=== PATIENT | female | born 1965 | race American Indian/Alaskan Native ===

== ENCOUNTER 2017-03-01 08:41 | Emergency (ER) | payer BC ==
[2017-03-01 09:08] VITALS: BP 145/97
[2017-03-01 10:20] LABS: Basophils % (Auto) 0.6 % (0.0-1.8); Eosinophils % (Auto) 0.7 % (0.0-4.3); Hematocrit 42.7 % (30.3-42.9); Hemoglobin 13.5 gm/dl (10.1-14.3); Mean Corpuscular HGB Conc 32 % (30-34); Mean Corpuscular Volume 79 fl (79-97); Platelet Count 266 K/mm3 (140-440); Red Blood Count 5.42 M/mm3 (3.65-5.03); Red Cell Distribution Width 14.2 % (13.2-15.2); White Blood Count 17.6 K/mm3 (4.5-11.0)
[2017-03-01 10:28] LABS: Mean Corpuscular Hemoglobin 25 pg (28-32)
[2017-03-01 10:29] LABS: Anion Gap 19 mmol/L; Blood Urea Nitrogen 10 mg/dL (7-17); Calcium 9.1 mg/dL (8.4-10.2); Carbon Dioxide 25 mmol/L (22-30); Chloride 95.7 mmol/L (98-107); Glucose 367 mg/dL (65-100); Potassium 3.9 mmol/L (3.6-5.0); Sodium 136 mmol/L (137-145)
[2017-03-01] MEDS ORDERED: XYLOCAINE 2%/EPI 1:100,000 INFILTRATI ONE (11:32)
[2017-03-01] MEDS ORDERED: NACL 0.9% 1000 ML 1,000 ML IV ONE (11:32)
[2017-03-01] MEDS ORDERED: TYLENOL PO ONE (11:33)
--- NOTE | 2017-03-01 11:52 | Emergency Department Report ---
Kourtney Doc - Documentation Documentation: When I initially entered the examination room and introduced myself to the patient I informed her that I am the physician logistics assistant and that I would be initially assessing her and attempting to help her today with her medical issue. Patient asked me who I was twice to which I responded twice my name / title/role in the ED. patient stated that she specifically wanted a female clinician to see her. I informed the patient that at this time the clinical staff in the main ED and fast track are male clinical staff. Patient was adamant that she only wanted a female provider. I explained to the patient that I am capable of assisting her with her issue and that I can obtain a female neighborhood service center director to assist me and neighborhood service center director me for any physical examination . Patient again stated that she only wanted a female provider that she considered it rude that I did not immediately seek out a female provider for her. I apologized and explained to the patient that it may be an indefinite amount of time before she is seen specifically by a female provider but there are clinical providers who can help her at this time and that I would inform the charge nurse and my supervisor die casting of her request. I informed charge nurse Peyton and Dr. Agee that the patient only wants to be seen by a female clinician.
[2017-03-01] MEDS ORDERED: XYLOCAINE 1% 20 mL INFILTRATI ONE (12:26)
[2017-03-01] MEDS ORDERED: MORPHINE IM ONE ×2 (12:26→13:19)
--- NOTE | 2017-03-01 12:45 | Emergency Department Report ---
- General Chief complaint: Skin/Abscess/Foreign Body Stated complaint: BOIL/HIGH BLOOD PRESSURE/HYPERGLYCEMIA Time Seen by Provider: 03/01/17 11:30 Source: patient Mode of arrival: Ambulatory Limitations: No Limitations - History of Present Illness Initial comments: Patient is boil in left buttock approximately 2 days ago. She's been trying to soak in warm bath to get the site to drain. There is some mild surrounding redness around the site. It is on the left buttock. She has had an abscess in this site in the past. MD complaint: abscess/boil -: Gradual, days(s) (2) Tetanus Up to Date: yes Location: buttocks Severity: moderate Quality: aching Worsens with: none Context: none Associated symptoms: denies other symptoms - Related Data Previous Rx's Medication Instructions Recorded Last Taken Type HYDROcodone/APAP 5-325 [[place] 1 each PO Q6HR PRN #10 tablet 03/01/17 Unknown Rx 5-325 mg TAB] Ibuprofen [Motrin 600 MG tab] 600 mg PO Q8H PRN #30 tablet 03/01/17 Unknown Rx Sulfamethoxazole/Trimethoprim 1 each PO BID #20 tablet 03/01/17 Unknown Rx [Bactrim DS TAB] Allergies Allergy/AdvReac Type Severity Reaction Status Date / Time No Known Allergies Allergy Verified 03/01/17 09:05 Abscess Boil HPI - HPI Chief Complaint: Skin/Abscess/Foreign Body Stated Complaint: BOIL/HIGH BLOOD PRESSURE/HYPERGLYCEMIA Time Seen by Provider: 03/01/17 11:30 Home Medications: Previous Rx's Medication Instructions Recorded Last Taken Type HYDROcodone/APAP 5-325 [[place] 1 each PO Q6HR PRN #10 tablet 03/01/17 Unknown Rx 5-325 mg TAB] Ibuprofen [Motrin 600 MG tab] 600 mg PO Q8H PRN #30 tablet 03/01/17 Unknown Rx Sulfamethoxazole/Trimethoprim 1 each PO BID #20 tablet 03/01/17 Unknown Rx [Bactrim DS TAB] Allergies/Adverse Reactions: Allergies Allergy/AdvReac Type Severity Reaction Status Date / Time No Known Allergies Allergy Verified 03/01/17 09:05 ED Review of Systems ROS: Stated complaint: BOIL/HIGH BLOOD PRESSURE/HYPERGLYCEMIA Other details as noted in HPI Constitutional: no symptoms reported. denies: fever, malaise Cardiovascular: denies: chest pain, palpitations Gastrointestinal: denies: nausea, vomiting Musculoskeletal: denies: back pain, arthralgia ED Past Medical Hx - Past Medical History Previous Medical History?: Yes Hx Hypertension: Yes Hx Diabetes: Yes - Surgical History Past Surgical History?: No - Family History Family history: no significant - Social History Smoking Status: Unknown if ever smoked Substance Use Type: None - Medications Home Medications: Home Medications Medication Instructions Recorded Confirmed Last Taken Type HYDROcodone/APAP 5-325 [[place] 1 each PO Q6HR PRN #10 tablet 03/01/17 Unknown Rx 5-325 mg TAB] Ibuprofen [Motrin 600 MG tab] 600 mg PO Q8H PRN #30 tablet 03/01/17 Unknown Rx Sulfamethoxazole/Trimethoprim 1 each PO BID #20 tablet 03/01/17 Unknown Rx [Bactrim DS TAB] ED Physical Exam - General Limitations: No Limitations General appearance: alert, in no apparent distress - Head Head exam: Present: atraumatic, normocephalic - GI/Abdominal GI/Abdominal exam: Present: soft. Absent: distended, tenderness, guarding - Rectal Rectal exam: Present: other (there is a fluctuant and firm abscess around the patient's left buttock) ED Course Vital Signs 03/01/17 09:05 Temperature 99.1 F Pulse Rate 115 H Respiratory 18 Rate Blood Pressure 145/97 O2 Sat by Pulse 96 Oximetry - I & D Left Buttocks Type of Procedure: Simple Site: left buttock Blade Size: 11 I & D Procedure: betadine prep, sterile drapes applied, gauze wick placed Progress: 1/4 inch iodiform gauze packing placed ED Medical Decision Making - Lab Data Result diagrams: 03/01/17 10:00 03/01/17 10:00 Laboratory Results - last 24 hr 03/01/17 03/01/17 10:00 10:00 WBC 17.6 H RBC 5.42 H Hgb 13.5 Hct 42.7 MCV 79 MCH 25 L MCHC 32 RDW 14.2 Plt Count 266 Lymph % (Auto) 17.6 [place] % (Auto) 6.0 Eos % (Auto) 0.7 Baso % (Auto) 0.6 Lymph # 3.1 [place] # 1.1 H Eos # 0.1 Baso # 0.1 Seg Neutrophils % 75.1 H Seg Neutrophils # 13.2 H Sodium 136 L Potassium 3.9 Chloride 95.7 L Carbon Dioxide 25 Anion Gap 19 BUN 10 Creatinine 0.4 L Estimated GFR > 60 BUN/Creatinine Ratio 25.00 Glucose 367 H Calcium 9.1 - Medical Decision Making 51-year-old female here with buttock abscess. Plan to drain With incision and drainage. We'll likely place the patient on postdrainage antibiotics. Tolerated procedure well. Patient will be discharged to follow-up for repacking within 48-72 hours. Plan to discharge on oral antibiotics. Counseled patient to return for development of fever or worsening pain. She understands and plans to follow-up. I also counseled that she should follow up with primary care doctor. Portions of this chart were dictated with dictation software. There may be dictation errors contained within this note. Critical care attestation.: If time is entered above; I have spent that time in minutes in the direct care of this critically ill patient, excluding procedure time. ED Disposition Clinical Impression: Left buttock abscess Disposition: TO HOME OR SELFCARE Is pt being admited?: No Condition: Stable Instructions: Abscess (ED) Additional Instructions: Please return to the emergency department for wound evaluation in [id number] hours. You may need to have the wound repacked. Prescriptions: HYDROcodone/APAP 5-325 [[place] 5-325 mg TAB] 1 each PO Q6HR PRN #10 tablet PRN Reason: Pain Ibuprofen [Motrin 600 MG tab] 600 mg PO Q8H PRN #30 tablet PRN Reason: Pain Sulfamethoxazole/Trimethoprim [Bactrim DS TAB] 1 each PO BID #20 tablet Referrals: PRIMARY CARE, [Primary Care Provider] - 3-5 Days
[2017-03-01] MEDS ORDERED: BACTRIM DS PO ONE (13:29)
== END 2017-03-01 13:42 | disposition home or self-care (01) ==
LOC: ED 08:41
DX: L02.31 Cutaneous abscess of buttock (principal); I10 Essential (primary) hypertension; E11.9 Type 2 diabetes mellitus without complications
CPT/HCPCS: 10060; 36415; 80048; 85025; 96372; 99283; J2270

== ENCOUNTER 2017-03-03 12:57 | Emergency (ER) | payer BC ==
[2017-03-03 14:06] VITALS: BP 133/88
--- NOTE | 2017-03-03 15:58 | Emergency Department Report ---
Abscess Boil HPI - HPI Chief Complaint: Laceration/Recheck/Suture Stated Complaint: PACKING REMOVAL Time Seen by Provider: 03/03/17 15:42 Duration: 2 Days Location: Other (buttocks) Severity: Moderate History: Yes Pain, No Fever, No Purulent Drainage, No Numbness, No Foreign Body , No Previous History, No Insect Bite Home Medications: Previous Rx's Medication Instructions Recorded Last Taken Type HYDROcodone/APAP 5-325 [[place] 1 each PO Q6HR PRN #10 tablet 03/01/17 Unknown Rx 5-325 mg TAB] Ibuprofen [Motrin 600 MG tab] 600 mg PO Q8H PRN #30 tablet 03/01/17 Unknown Rx Sulfamethoxazole/Trimethoprim 1 each PO BID #20 tablet 03/01/17 Unknown Rx [Bactrim DS TAB] HYDROcodone/APAP 5-325 [[place] 1 each PO Q6HR PRN #10 tablet 03/03/17 Unknown Rx 5/325] Allergies/Adverse Reactions: Allergies Allergy/AdvReac Type Severity Reaction Status Date / Time No Known Allergies Allergy Verified 03/01/17 09:05 ED Review of Systems ROS: Stated complaint: PACKING REMOVAL Other details as noted in HPI Comment: Unobtainable due to pts medical conditions Constitutional: no symptoms reported, see HPI. denies: chills Eyes: as per HPI. denies: eye pain ENT: as per HPI. denies: ear pain, throat pain Respiratory: no symptoms reported, see HPI. denies: cough, orthopnea Cardiovascular: as per HPI. denies: chest pain, palpitations, dyspnea on exertion, orthopnea Endocrine: no symptoms reported, see HPI. denies: excessive sweating, flushing , intolerance to cold, intolerance to heat Gastrointestinal: as per HPI. denies: abdominal pain, nausea, vomiting Genitourinary: as per HPI. denies: urgency, dysuria Musculoskeletal: as per HPI. denies: back pain Skin: as per HPI, lesions Neurological: as per HPI. denies: headache, weakness Psychiatric: as per HPI. denies: anxiety, depression Hematological/Lymphatic: as per HPI. denies: easy bleeding ED Past Medical Hx - Past Medical History Hx Hypertension: Yes Hx Diabetes: Yes - Social History Smoking Status: Current Every Day Smoker Substance Use Type: Prescribed - Medications Home Medications: Home Medications Medication Instructions Recorded Confirmed Last Taken Type HYDROcodone/APAP 5-325 [[place] 1 each PO Q6HR PRN #10 tablet 03/01/17 Unknown Rx 5-325 mg TAB] Ibuprofen [Motrin 600 MG tab] 600 mg PO Q8H PRN #30 tablet 03/01/17 Unknown Rx Sulfamethoxazole/Trimethoprim 1 each PO BID #20 tablet 03/01/17 Unknown Rx [Bactrim DS TAB] HYDROcodone/APAP 5-325 [[place] 1 each PO Q6HR PRN #10 tablet 03/03/17 Unknown Rx 5/325] ED Abscess Boil Physical Exam - Exam General: Vital signs noted. No distress. Alert and acting appropriately. packing removed no flat area red only appears improved based on previous provider note. ED Course Vital Signs 03/03/17 13:58 Temperature 98.0 F Pulse Rate 94 H Respiratory 18 Rate Blood Pressure 133/88 O2 Sat by Pulse 98 Oximetry - Reevaluation(s) Reevaluation #1: 03/03/17 Refused to see ALMA ROSA Mcmullen- case reassigned to me On arrival to [facility] pt upset she had to wait "4h" She says no one has given her anything for pain in those 4 hours. She reports that she drove to ER and I offered her motrin/tylenol She stated she has taken all norco given 2 days ago and needs rx packing removed in reading previous note pt appears to have improved pt demand cbc she said he told me it was high but gave me no number 'and I want to know." She is very angry and argumentative Asking for female nurse Reevaluation #2: 03/03/17 16:48 Pt upset when nurse came in demanding pain meds, gown, and slippers CBC was noted much improved I went in with RN re-educated pt on POC She is now going to call a coworker to come and get her [place] for pain We discussed in detail w RN the POC for pt. Critical care attestation.: If time is entered above; I have spent that time in minutes in the direct care of this critically ill patient, excluding procedure time. ED Medical Decision Making - Lab Data Result diagrams: 03/03/17 16:13 ED Disposition Clinical Impression: Left buttock abscess Disposition: DC- TO HOME OR SELFCARE Is pt being admited?: No Does the pt Need Aspirin: No Condition: Stable Instructions: Abscess (ED) Additional Instructions: epsom salts three times a day, in bath tub for 20 min each time continue bactrim drink a lot of water monitor blood sugar keep wound covered to protect clothing monitor fever follow up PCP- name given here next week for recheck motrin or tylenol for moderate pain narcotic only for severe pain Referrals: PRIMARY CAREMD [Primary Care Provider] - 3-5 Days LILIA DORADO MD [Staff Physician] - 3-5 Days Time of Disposition: 16:51
[2017-03-03 16:29] LABS: Basophils % (Auto) 0.9 % (0.0-1.8); Hematocrit 42.6 % (30.3-42.9); Hemoglobin 14.1 gm/dl (10.1-14.3); Mean Corpuscular HGB Conc 33 % (30-34); Mean Corpuscular Volume 79 fl (79-97); Platelet Count 267 K/mm3 (140-440); Red Blood Count 5.43 M/mm3 (3.65-5.03); Red Cell Distribution Width 14.1 % (13.2-15.2); White Blood Count 10.8 K/mm3 (4.5-11.0)
[2017-03-03 16:33] LABS: Mean Corpuscular Hemoglobin 26 pg (28-32)
[2017-03-03] MEDS ORDERED: NORCO 5/325 PO ONE (16:44)
== END 2017-03-03 17:42 | disposition home or self-care (01) ==
LOC: ED 12:57
DX: L02.31 Cutaneous abscess of buttock (principal); I10 Essential (primary) hypertension; E11.9 Type 2 diabetes mellitus without complications; F17.200 Nicotine dependence, unspecified, uncomplicated
CPT/HCPCS: 36415; 85025; 99283